=== PATIENT | male | born 1995 | race Caucasian/White ===

== ENCOUNTER 2023-01-10 02:48 | Emergency (ER) | payer MEDICAID, OTHER ==
[~2023-01-10] VITALS: Ht 170.2 cm; Wt 88.0 kg
[2023-01-10 02:50] VITALS: O2SAT 100
[2023-01-10 06:41] VITALS: BP 96/61; PULSE 72; RESP 16; TEMP 97.8
== END 2023-01-10 06:41 | disposition home or self-care (01) ==
LOC: ER 03:06
DX: F12.90 Cannabis use, unspecified, uncomplicated (principal); R42 Dizziness and giddiness
CPT/HCPCS: 93005; 99283